=== PATIENT | female | born 1965 | race Caucasian/White ===

== ENCOUNTER → 2017-11-05 | Outpatient (CLI) | payer BC ==
[~2017-11-05] MED LIST: APRACLONIDINE 1% 0.1 ML OPH ONE; OPHTHALMIC IRRIG SOLUTION 120 ML ONE; PROPARACAINE 0.5% 15 ML OPH ONE; TROPICAMIDE 1% 3 ML OPH ONE
== END | disposition home or self-care (01) ==
LOC: RAD 10:17
PROVIDERS: ATTEND Ophthalmology
DX: H26.9 Unspecified cataract (principal)
CPT/HCPCS: 66821; Z7610

== ENCOUNTER 2018-03-09 05:59 | Day surgery (SDC) | END 2018-03-09 10:38 | disposition home or self-care (01) ==